=== PATIENT | female | born 1980 | race Two or more races ===

== ENCOUNTER 2022-03-17 22:24 | Inpatient (IN) | payer OTHER ==
[2022-03-17 22:31] VITALS: BMI 38.0
[2022-03-17] MEDS ORDERED: CLINDAMYCIN 600MG PREMIX IVPB 600 MG/50 ML BAG IVPB ONE (23:56)
[2022-03-18] MEDS ORDERED: DIPHTH,PERTUSS(ACELL),TET 0.5 ML DISP.SYRIN IM ONE ×2 (00:05→00:17)
[2022-03-18] MEDS ORDERED: CLINDAMYCIN 600MG PREMIX IVPB 600 MG/50 ML BAG IVPB ONE (00:16)
[2022-03-18 00:22] LABS: BASO % 0.9 % (0-2.0); EOS % 1.3 % (0-4.5); HEMATOCRIT 35.3 % (32.4-45.2); LYMPH % 27.5 % (8-40); MCH 28.4 pg (25.7-33.7); MCHC 34.1 g/dl (32.0-36.0); MEAN CELL VOLUME 83.2 fl (80-96); MEAN PLT VOLUME 7.6 fl (7.5-11.1); NEUT % 60.3 % (42.8-82.8); PLATELET COUNT 328 10^3/uL (134-434); RBC 4.24 M/mm3 (3.60-5.2); RDW 14.2 % (11.6-15.6); WHITE BLOOD COUNT 5.8 K/mm3 (4.0-10.0)
[2022-03-18] MEDS ORDERED: LACTATED RINGERS SOLUTION 1000 ML INFUS.BAG IV ONE (00:41)
[2022-03-18 00:43] LABS: ALBUMIN 3.3 g/dl (3.4-5.0); BLOOD UREA NITROGEN 19.1 mg/dL (7-18); CALCIUM 8.9 mg/dL (8.5-10.1)
[2022-03-18 00:46] LABS: CREATININE 0.9 mg/dL (0.55-1.3)
[2022-03-18 00:48] LABS: BILIRUBIN,TOTAL 0.4 mg/dL (0.2-1); TOT PROT 7.1 g/dl (6.4-8.2)
[2022-03-18 00:52] LABS: INR 1.07 (0.83-1.09); PROTHROMBIN TIME (PATIENT) 12.3 SEC (9.7-13.0)
[2022-03-18 00:54] LABS: ACTIVATED PTT 30.3 SECONDS (25.2-36.5)
[2022-03-18 08:00] LABS: BASO % 0.7 % (0-2.0); HEMATOCRIT 35.4 % (32.4-45.2); HEMOGLOBIN 11.7 GM/dL (10.7-15.3); LYMPH % 32.6 % (8-40); MCH 27.5 pg (25.7-33.7); MCHC 32.9 g/dl (32.0-36.0); MEAN CELL VOLUME 83.5 fl (80-96); MEAN PLT VOLUME 7.7 fl (7.5-11.1); MONO % 9.4 % (3.8-10.2); NEUT % 56.3 % (42.8-82.8); PLATELET COUNT 321 10^3/uL (134-434); RBC 4.24 M/mm3 (3.60-5.2); WHITE BLOOD COUNT 5.2 K/mm3 (4.0-10.0)
[2022-03-18 08:24] LABS: CALCIUM 8.7 mg/dL (8.5-10.1); MAGNESIUM 2.2 mg/dL (1.8-2.4)
[2022-03-18 08:25] LABS: ALBUMIN 3.1 g/dl (3.4-5.0); BLOOD UREA NITROGEN 15.6 mg/dL (7-18)
[2022-03-18 08:26] LABS: CREATININE 0.8 mg/dL (0.55-1.3)
[2022-03-18 08:28] LABS: TOT PROT 6.7 g/dl (6.4-8.2)
[2022-03-18 08:31] LABS: PHOSPHOROUS 2.5 mg/dL (2.5-4.9)
[2022-03-18 08:32] LABS: BILIRUBIN,TOTAL 0.6 mg/dL (0.2-1)
[2022-03-18] MEDS: ENOXAPARIN NA (PORCINE) 40 MG/0.4 ML DISP.SYRIN SQ SCH ×2 (10:16→10:21)
[2022-03-18] MEDS: CLINDAMYCIN 600MG PREMIX IVPB 600 MG/50 ML BAG IVPB SCH ×2 (10:16→18:06)
[2022-03-18 12:30] LABS: URINE APPEARANCE CLEAR; URINE BILIRUBIN NEGATIVE (NEGATIVE); URINE COLOR YELLOW; URINE GLUCOSE (UA) NEGATIVE (NEGATIVE); URINE KETONE NEGATIVE (NEGATIVE); URINE LEUK ESTERASE NEGATIVE (NEGATIVE); URINE NITRITE NEGATIVE (NEGATIVE); URINE PROTEIN NEGATIVE (NEGATIVE)
[2022-03-19] MEDS: CLINDAMYCIN 600MG PREMIX IVPB 600 MG/50 ML BAG IVPB SCH ×2 (02:19→11:45)
[2022-03-19] MEDS: ESCITALOPRAM OXALATE 20 MG TABLET PO SCH ×2 (08:11→10:04)
[2022-03-19] MEDS: LISINOPRIL 10 MG TABLET PO SCH ×2 (08:11→10:04)
[2022-03-19] MEDS: HYDROCHLOROTHIAZIDE 12.5 MG CAPSULE (FP) PO SCH ×2 (08:11→10:04)
[2022-03-19] MEDS ORDERED: PATIENT'S OWN MEDICATION (NON-FORMULARY) (Lisinopril/Hydrochlorothiazide [Lisinopril-Hctz PO SCH (10:00)
[2022-03-19] MEDS: ENOXAPARIN NA (PORCINE) 40 MG/0.4 ML DISP.SYRIN SQ SCH (10:04)
[2022-03-19 16:08] VITALS: BP 151/95; PULSE 79; RESP 19; TEMP 97.9
[2022-03-19] MEDS ORDERED: traZODone HCL 50 MG TABLET (FP) PO SCH (22:00)
== END 2022-03-19 17:21 | disposition home health service (06) | DRG 383 ==
LOC: JER 22:24 → JERBED 23:58 → J5S 03-18 05:32
PROVIDERS: ADMIT Internal Medicine; ATTEND Internal Medicine
DX: L02.416 Cutaneous abscess of left lower limb (principal); I10 Essential (primary) hypertension; L08.9 Local infection of the skin and subcutaneous tissue, unspecified; L03.116 Cellulitis of left lower limb; R60.9 Edema, unspecified; E66.9 Obesity, unspecified; Z68.38 Body mass index [BMI] 38.0-38.9, adult; F41.8 Other specified anxiety disorders; B95.62 Methicillin resistant Staphylococcus aureus infection as the cause of diseases classified elsewhere
CPT/HCPCS: 36415; 73552-TC-LT-FY; 73701-TC-RT; 76882-TC-LT; 80053; 80061; 81003; 83735; 84100; 84703; 85025; 85610; 85651; 85730; 86140; 86850; 86900; 86901; 87040; 87070; 87186; 87205; 90715; 93005; 93010; 99285-25; C9803-CS; Q9967; U0003; U0005

== ENCOUNTER 2023-06-19 08:15 | Emergency (ER) | payer OTHER ==
[2023-06-19 08:21] VITALS: TEMP 98.8; BMI 42.9
[2023-06-19] MEDS ORDERED: diazePAM 5 MG TABLET PO ONE (08:57)
[2023-06-19] MEDS ORDERED: CYCLOBENZAPRINE HCL 10 MG TABLET (FP) PO ONE (08:57)
[2023-06-19] MEDS ORDERED: LIDOCAINE 5% TOPICAL PATCH TP ONE (08:58)
[2023-06-19] MEDS ORDERED: ACETAMINOPHEN 325 MG TABLET (FP) PO ONE (08:58)
[2023-06-19] MEDS ORDERED: LIDOCAINE 4% PATCH TP ONE ×2 (09:15→09:33)
[2023-06-19] MEDS ORDERED: diazePAM 5 MG TABLET ONE (09:33)
[2023-06-19] MEDS ORDERED: ACETAMINOPHEN 325 MG TABLET (FP) ONE (09:33)
[2023-06-19 11:39] VITALS: BP 134/86; PULSE 80; RESP 20
[2023-06-19 11:44] LABS: URINE APPEARANCE CLEAR; URINE BILIRUBIN NEGATIVE (NEGATIVE); URINE COLOR YELLOW; URINE GLUCOSE (UA) NEGATIVE (NEGATIVE); URINE KETONE NEGATIVE (NEGATIVE); URINE LEUK ESTERASE NEGATIVE (NEGATIVE); URINE NITRITE NEGATIVE (NEGATIVE); URINE PROTEIN NEGATIVE (NEGATIVE)
[2023-06-19 11:49] LABS: HCG,QUALITATIVE URINE Negative
[2023-06-19] MEDS ORDERED: LIDOCAINE PATCH REMOVAL MC SCH (22:00)
== END 2023-06-19 11:39 | disposition home or self-care (01) ==
LOC: JER 08:15
DX: M54.6 Pain in thoracic spine (principal); R06.02 Shortness of breath
CPT/HCPCS: 71046-TC-FY; 81003; 84703; 87086; 93005; 93010; 99285-25